=== PATIENT | female | born 1970 | race Caucasian/White ===

== ENCOUNTER 2016-09-04 15:43 | Emergency (ER) | payer MEDICAID ==
[~2016-09-04] VITALS: Ht 152.4 cm; Wt 100.0 kg
[2016-09-04 15:44] VITALS: BP 129/64
== END 2016-09-04 17:35 | disposition left against medical advice (07) ==
LOC: EMS 15:47
DX: R30.9 Painful micturition, unspecified (principal); Z53.21 Procedure and treatment not carried out due to patient leaving prior to being seen by health care provider

== ENCOUNTER 2017-01-28 04:54 | Emergency (ER) | payer SELFPAY ==
[~2017-01-28] VITALS: Ht 152.4 cm; Wt 75.0 kg
[2017-01-28 06:38] VITALS: BP 133/78
== END 2017-01-28 07:02 | disposition home or self-care (01) ==
LOC: EMS 04:57
DX: J18.0 Bronchopneumonia, unspecified organism (principal)
CPT/HCPCS: 99283